=== PATIENT | male | born 1990 | race Caucasian/White ===

== ENCOUNTER 2021-02-20 05:04 | Emergency (ER) | payer OTHER ==
[~2021-02-20] VITALS: Ht 165.1 cm; Wt 77.1 kg
[2021-02-20 06:07] LABS: HEMOGLOBIN 13.9 gm/dl (14.0-17.5); WHITE BLOOD COUNT 9.7 K/UL (4.5-11.0)
[2021-02-20 06:32] LABS: BUN/CREATININE RATIO 15 (0-10)
[2021-02-20] MEDS ORDERED: HYDROCODON-ACE1 EAC4 PO (08:34)
== END 2021-02-20 08:10 | disposition home or self-care (01) ==
LOC: ER1 05:04
PROVIDERS: Emergency Medicine
DX: N13.2 Hydronephrosis with renal and ureteral calculous obstruction (principal)
CPT/HCPCS: 80053; 81001; 83690; 85025; 96374; 96375; 99284; J1885; J2405